=== PATIENT | female | born 1985 | race Caucasian/White ===

== ENCOUNTER 2020-07-12 16:03 | Emergency (ER) | payer OTHER ==
[~2020-07-12 16:03] MED LIST: SYNTHROID50 MCG PO
== END 2020-07-12 17:22 | disposition home or self-care (01) ==
LOC: FER 16:03
DX: O99.891 Other specified diseases and conditions complicating pregnancy (principal); R07.89 Other chest pain; Z3A.28 28 weeks gestation of pregnancy
CPT/HCPCS: 93005